=== PATIENT | female | born 1945 | race Caucasian/White ===

== ENCOUNTER → 2016-04-21 | Outpatient (CLI) | payer BC, MEDICARE ==
--- NOTE | 2016-04-21 15:07 | KCIC ---
CT of the right knee Conformis protocol HISTORY Preop total knee arthroplasty. Technique: The standard images are obtained in accordance with Conformis protocol. Primary osteoarthritis is identified at the knee. There is severe narrowing at the medial joint compartment with vacuum. Mild subchondral eburnation and small subchondral cysts. Milder degenerative changes at the lateral compartment. Patellofemoral joint demonstrates joint space narrowing and marginal osteophytes. Degenerative changes at the fabella femoral joint. No evidence of aggressive bone destruction or acute fracture. No acute soft tissue abnormality is identified. Limited images are obtained in the axial plane through the right hip and through the right ankle, without obvious acute abnormality. Impression: Right knee primary osteoarthritis. Electronically signed by: Gabe Britt MD (Apr 21, 2016 15:06:03)
== END | disposition home or self-care (01) ==
LOC: KCIC CT 12:21
PROVIDERS: ATTEND Orthopaedic Surgery
DX: Z96.651 Presence of right artificial knee joint (principal)
CPT/HCPCS: 73700

== ENCOUNTER → 2016-07-14 | Outpatient (CLI) | payer MEDICARE ==
[~2016-07-14] MED LIST: AMIT25TA PO; BIOT1CAP3 PO; CLON0.5T3 PO; FLUT1DIS3 IH; GLUC500T7 PO; HYDR12.58 PO; LACT1CAP6 PO; LEVO88TA2 PO; LOSA100T6 PO; METO25TA9 PO; MULT-650 PO; NAPR500T PO; OMEP20CA9 PO; PROAIR HFA8.5 GM INH
[2016-07-14 08:47] LABS: BASO # 0.1 x10^3/uL (0.0-0.2); BASO % 1 % (0-3); EOS % 4 % (0-3); HEMATOCRIT 43.2 % (36.0-47.0); HEMOGLOBIN 14.4 g/dL (12.0-15.5); LYMPH # 1.8 x10^3/uL (1.0-4.8); LYMPH % 29 % (24-48); MEAN CORPUSCULAR HEMOGLOBIN 33 pg (25-35); MEAN CORPUSCULAR HGB CONC 33 g/dL (31-37); MEAN CORPUSCULAR VOLUME 99 fL (79-100); MONO % 9 % (0-9); NEUT % 58 % (31-73); PLATELET COUNT 205 x10^3/uL (140-400); RED BLOOD COUNT 4.37 x10^6/uL (3.50-5.40); RED CELL DISTRIBUTION WIDTH 13.5 % (11.5-14.5); WHITE BLOOD COUNT 6.2 x10^3/uL (4.0-11.0)
[2016-07-14 08:54] LABS: ALBUMIN 3.7 g/dL (3.4-5.0); CALCIUM 9.4 mg/dL (8.5-10.1); CREATININE 0.9 mg/dL (0.6-1.0); GFR 61.5
[2016-07-14 08:59] LABS: PROTHROMBIN TIME PATIENT 12.6 SEC (11.7-14.0)
[2016-07-14 10:55] LABS: BILIRUBIN,URINE NEGATIVE (NEG); GLUCOSE,URINE NEGATIVE (NEG); NITRITE,URINE NEGATIVE (NEG); PROTEIN,URINE NEGATIVE (NEG-TRACE); UROBILINOGEN,URINE 0.2 mg/dL (0.2 mg/dL)
[2016-07-14 11:40] LABS: BACTERIA,URINE 0 /HPF (0-FEW); RBC,URINE 0 /HPF (0-2); SQUAMOUS EPITHELIAL CELL,UR OCC /LPF; WBC,URINE OCC /HPF (0-4)
--- NOTE | 2016-07-14 12:37 | RAD ---
Exam: PA and lateral chest radiograph History: Hypertension, preoperative for knee replacement. Comparison: 05/21/2010. Findings: Cardiomediastinal silhouette is within normal limits for size. Aortic atherosclerosis is seen. Bilateral lung siu are free of focal infiltrate. No pleural effusion is seen. Cervicothoracic junction demonstrates spinal fusion hardware. Impression: No acute cardiopulmonary process.
== END | disposition home or self-care (01) ==
LOC: SURGPAT 16:28
PROVIDERS: ATTEND Orthopaedic Surgery
DX: Z01.818 Encounter for other preprocedural examination (principal); I10 Essential (primary) hypertension
CPT/HCPCS: 36415; 71020; 80048; 81001; 82040; 85027; 85610; 85651; 85730; 87641

== ENCOUNTER 2016-08-05 05:43 | Inpatient (IN) | payer BC ==
--- NOTE | 2016-08-04 13:17 | PDOC1 ---
History and Physical Date of Admission Date of Admission DATE: 08/05/16 Identification/Chief Complaint Chief Complaint right knee osteoarthritis pain Problems: Source Source: Chart review History of Present Illness History of Present Illness Halle is a 70 year old female who has bilateral knee osteoarthritis. The right knee is more painful than the left. She has tried both corticosteroid injections and viscosupplementation, without much relief. She is ready for total knee replacement. She is afraid if she waits too long she will not be able to get both of them done, which she would like to do. Past Medical History Pulmonary: COPD GI: GERD Musculoskeletal: Osteoarthritis Past Surgical History Past Surgical History: Appendectomy Family History Family History: Cancer, Heart Disease, Osteo Arthiritis Social History Smoke: Quit (03/13/76) ALCOHOL: none Drugs: None Current Medications Current Medications Current Medications Ketorolac Tromethamine/ Ropivacaine/ Epinephrine HCl/ Sodium Chloride (Toradol/ Naropin 0.5%/Adrenalin/Iv Sodium Chloride 0.9% 100ml) 99.5 ml @ 99.5 mls/hr 1X PERIOP PRN IV PAIN; Start 08/04/16 at 10:45; Stop 08/09/16 at 10:44 Active Scripts Active Reported Naprosyn (Naproxen) 500 Mg Tablet 375 Mg PO BID Advair 250-50 Diskus (Fluticasone/Salmeterol) 1 Each Disk.w.dev 1 Inh IH BID Biotin 1 Mg Capsule 1 Mg PO DAILY Glucosamine Hcl 500 Mg Tablet 500 Mg PO DAILY Probiotic (Lactobacillus Acidophilus) 1 Each Capsule 1 Each PO DAILY Centrum Silver Women Tablet (Multivits-Min/Iron/FA/Lutein) 1 Each Tablet 1 Each PO DAILY Synthroid (Levothyroxine Sodium) 88 Mcg Tablet 88 Mcg PO DAILYAC Proair Hfa Inhaler (Albuterol Sulfate) 8.5 Gm Hfa.aer.ad 22 Puff INH PRN Q6HRS PRN Hydrochlorothiazide Tablet (Hydrochlorothiazide) 12.5 Mg Tablet 6.25 Mg PO DAILY Losartan Potassium 100 Mg Tablet 100 Mg PO DAILY Omeprazole 20 Mg Capsule.dr 20 Mg PO DAILY Metoprolol Succinate ( Xl ) (Metoprolol Succinate) 25 Mg Tab.er.24h 25 Mg PO DAILY Amitriptyline Hcl 25 Mg Tablet 1 Tab PO QHS Clonazepam 0.5 Mg Tablet 0.5 Mg PO BID Allergies Allergies: Coded Allergies: codeine (Verified Allergy, Intermediate, Nausea and Vomiting, 07/08/16) morphine (Verified Allergy, Intermediate, Nausea and Vomiting, 07/08/16) I S O L A T I O N *CONTACT* (Verified Allergy, Unknown, 07/15/16) mrsa + Physical Exam General: Alert, Oriented X3, Cooperative, No acute distress HEENT: Atraumatic, EOMI Lungs: Normal air movement Heart: RRR Abdomen: Soft Extremities: No clubbing, No cyanosis, No edema, Normal pulses, Other (The right knee shows her mildly antalgic gait. There is varus alignment. No masses. No detectable effusion. Tenderness on the joint lines. Range of motion is 10- 110 degrees. There is crepitus with range of motion, and pain at the extremes of motion. The knee is stable to varus and valgus stress without subluxation or laxity. Muscle strength is normal (5/5) for quadriceps and hamstrings, and muscle tone is normal. The skin is normal with no scars, rashes, lesions or ulcers. Light touch sensation is intact. No edema and no varicosities. Dorsalis pedis pulse is intact and capillary refill is normal. The left knee shows normal to trace varus alignment. No masses. No detectable effusion. Tenderness on the joint lines. Range of motion is 5-115 degrees. There is crepitus with range of motion, and pain at the extremes of motion. The knee is stable to varus and valgus stress without subluxation or laxity. Muscle strength is normal (5/5) for quadriceps and hamstrings, and muscle tone is normal. The skin is normal with no scars, rashes, lesions or ulcers. Light touch sensation is intact. No edema and no varicosities. Dorsalis pedis pulse is intact and capillary refill is normal.) Skin: No rashes, No breakdown, No significant lesion Neuro: Normal speech, Sensation intact Psych/Mental Status: Mental status NL, Mood NL VTE Prophylaxis Ordered VTE Prophylaxis Devices: Yes VTE Pharmacological Prophylaxi: Yes Assessment/Plan Assessment/Plan Bilateral knee osteoarthritis, right knee more severe than the left. Dr. An and the patient had long discussion bout the risks benefits and alternatives of total knee arthroplasty. She has tried viscosupplementation, corticosteroid injections, and taking oral naproxen. Despite that she still has daily symptoms. Other things offered she could try nonoperatively include formal therapy or bracing but at age 70, she is concerned that she will get too old and I agree. She is relatively healthy and functional and would benefit from total knee arthroplasty. She has a friend who had a periprosthetic fracture and we talked about her risks of that such as using omeprazole for many years, and that she has been using calcium carbonate. I recommended she start taking calcium citrate instead. We discussed the benefits of patient matched custom implant such as Conformis. We discussed the option of an off-the- shelf implants, with stems if needed for osteoporosis. She has only very mild osteoporosis by DEXA scan, so I believe the custom implants will be fine for her. These do seem to do well in recovery and patient satisfaction in early studies. The Conformis implant recently was released in posterior stabilized design which I prefer. We discussed the potential risks of infection, neurovascular injury, bleeding, blood clots, need for revision surgery, or other potential surgical or anesthetic complications. We discussed the expected hospitalization. Her can help her home and she desires to go home immediately after three day hospitalization. All of her questions about surgery were answered. We will get the CT scan scheduled for her 3-D printed custom implant, and need to get long leg x-rays as well. The right knee is the one that is the most symptomatic and that is the one we will do in august after . She would like cortisone injections in both knees today. We discussed the risks of infection with cortisone injections too close to the time of surgery, but this far out should be fine. We could see her back in three months to inject the left knee only. JOSUE DE LA PAZ Aug 04, 2016 13:17
[2016-08-05] VITALS (8 sets, daily range): BP systolic 110–141; BP diastolic 62–73
[~2016-08-05] VITALS: Ht 167.6 cm; Wt 81.6 kg
[~2016-08-05 05:43] MED LIST changes: +EPINEPHRINE IV PRN; +KETOROLAC TROMETHAMINE IV PRN; +ROPIVACAINE 0.5% IV PRN; +[UNRECOGNIZED DRUG - OTHER] IV PRN
[2016-08-05] MEDS ORDERED: CELECOXIB 200 MG CAPSULE. PO PRN (06:00)
[2016-08-05] MEDS ORDERED: TRANEXAMIC ACID 1,000 MG in IV NS 50ML -- 1ST BAG INJ ONE (06:00)
[2016-08-05] MEDS ORDERED: VANCOMYCIN 1GM IVPB FOR OMNI 250 ML IV PRN (06:30)
[2016-08-05] MEDS ORDERED: VANCOMYCIN 1 GM VIAL. ONE ×2 (06:34→09:51)
[2016-08-05] MEDS ORDERED: TOBRAMYCIN POWDER 1.2 GM VIAL. ONE ×2 (06:35→09:51)
[2016-08-05] MEDS ORDERED: DESFLURANE > 120 MINUTES IH ONE (06:52)
[2016-08-05] MEDS ORDERED: ONDANSETRON PF 4 MG/2 ML VIAL. ONE (06:52)
[2016-08-05] MEDS ORDERED: LIDOCAINE 2% 100 MG/5 ML SYRINGE. ONE (06:52)
[2016-08-05] MEDS ORDERED: DEXAMETHASONE SOD PHOS 20 MG/5 ML VIAL. ONE (06:52)
[2016-08-05] MEDS ORDERED: PROPOFOL 20 ML IV ONE (06:52)
[2016-08-05] MEDS ORDERED: FENTANYL PF 100 MCG/2 ML VIAL. ONE (06:52)
[2016-08-05] MEDS ORDERED: ONDANSETRON PF 4 MG/2 ML VIAL. IV PRN (07:00)
[2016-08-05] MEDS ORDERED: LIDOCAINE 1% 1 ML SYRINGE. ID PRN (07:00)
[2016-08-05] MEDS ORDERED: FENTANYL PF 100 MCG/2 ML VIAL. IV PRN ×3 (07:00→10:00)
[2016-08-05] MEDS ORDERED: PROCHLORPERAZINE 10 MG/2 ML VIAL. IV PRN ×2 (07:00→10:00)
[2016-08-05] MEDS: IV RINGERS,LACTATED 1000ML 1,000 ML IV SCH ×2 (07:03→10:23)
[2016-08-05] MEDS: HYDROCODONE/APAP 7.5/325MG TABLET. PO PRN ×2 (07:04→13:34)
[2016-08-05] MEDS ORDERED: MIDAZOLAM HCL/PF 5 MG/5 ML VIAL. ONE (07:05)
[2016-08-05] MEDS ORDERED: SCOPOLAMINE 1.5MG PATCH. TD ONE ×2 (07:10→07:15)
[2016-08-05] MEDS ORDERED: SUCCINYLCHOLINE 200 MG/10 ML VIAL. ONE (07:17)
[2016-08-05] MEDS ORDERED: GLYCOPYRROLATE 1 MG/5 ML VIAL. ONE (07:43)
[2016-08-05] MEDS ORDERED: TRANEXAMIC ACID 1,000 MG in IV NS 50ML -- 2ND BAG INJ ONE (08:00)
[2016-08-05] MEDS ORDERED: METOCLOPRAMIDE HCL 10 MG/2 ML VIAL. IV PRN (10:00)
[2016-08-05] MEDS ORDERED: 0.9 % SODIUM CHLORIDE 10 ML DISP.SYRIN. IV PRN (10:00)
[2016-08-05] MEDS ORDERED: TRAMADOL 50 MG TABLET. PO PRN ×2 (10:00)
[2016-08-05] MEDS ORDERED: OXYCODONE/APAP 7.5/325 TABLET. PO PRN (10:00)
[2016-08-05] MEDS ORDERED: PROCHLORPERAZINE 5 MG TABLET. PO PRN (10:00)
[2016-08-05] MEDS ORDERED: ACETAMINOPHEN 325 MG TABLET. PO PRN (10:00)
[2016-08-05] MEDS ORDERED: diphenhydrAMINE 50 MG/ML VIAL IV PRN (10:00)
[2016-08-05] MEDS ORDERED: DEXTROSE 50% 25 GM / 50ML DISP.SYRIN. IV PRN (10:00)
[2016-08-05] MEDS ORDERED: HYDROCODONE/APAP 7.5/325MG TABLET. PO PRN (10:00)
[2016-08-05] MEDS ORDERED: ZOLPIDEM 5 MG TABLET. PO PRN (10:00)
[2016-08-05] MEDS ORDERED: HYDROCODONE/APAP 10/325 TABLET. PO PRN (10:00)
[2016-08-05] MEDS ORDERED: ALBUTEROL SULFATE INH PRN (10:15)
--- NOTE | 2016-08-05 10:23 | PDOC4 ---
Operative Note Operative Note Date of Procedure: August 05, 2016 Pre-Op Diagnosis: Osteoarthritis right knee Post-Op Diagnosis: Osteoarthritis right knee Procedure: right total knee arthroplasty Surgeon: Jeanine An MD Manager Inventory Control: Pati Fall PA-C Anesthesia: General EBL: 100 mL Specimens Obtained: right knee bone and soft tissue Complications: none Implant Company: [employer] Patient Matched Implants and Patient Matched Jigs Drains: Hemovac plus pain catheter Tourniquet time: 71 minutes Indications for Procedure: Arthritis pain unrelieved by nonoperative management. Findings: Severe osteoarthritis with bone on bone contact medially Implants used: Custom posterior stabilized implants, with patella resurfacing 38 mm Procedure in Detail: The patient was identified in the preoperative holding area, and the correct right extremity was marked by me. The patient was taken to the operating room where the patient was anesthetized by the Department of Anesthesia. Preoperative antibiotics were given intravenously. Tranexamic acid 1 g was given intravenously for intraoperative hemostasis. A "time-out" procedure was performed. The patient was positioned supine on the operative table with a tourniquet on the upper thigh. The limb was thoroughly prepped and draped in sterile fashion. An impervious stockinet and adhesive drape were used such that the skin was entirely covered. An Hupu leg welch was used. The operating team wore personal exhaust-ventilated hoods. The tourniquet was inflated to 350 mm Hg. A midline skin incision was made with a scalpel using the patella and tibial tubercle as landmarks. Electrocautery was used for hemostasis. My optical assistant used rake retractors. A medial parapatellar arthrotomy incision was used with extension into the distal quadriceps tendon. The patella was retracted laterally and Hohmann retractors were now used by my optical assistant. Excess synovium, the menisci, and the cruciate ligaments were resected sharply. The patella was assessed and excess synovium and osteophytes around the patellar articulation were removed. The patella was measured with a caliper, cut freehand with a saw using caliper measurements, sized, and then drilled for an oval three-pegged patella component. Periarticular injection was used in the suprapatellar pouch and distal quadriceps muscle. The patient-matched Positioning Jig was applied, and the coring reamer was used to expose the subchondral bone. The Alignment Jig and Distal Resection Jig were applied to the femur. The rotational pin holes were drilled on the distal femur. The distal resection was made using the Jig. An additional 2 mm resection was used due to the deep femoral sulcus, and deficient condyle. My optical assistant held Hohmann retractors and an [facility] retractor to protect the medial and lateral collateral ligaments, the patellar tendon, the skin and the other soft tissues. The Extension Spacer Jig was used to check that the cuts were planar. The patient-matched Tibial Jig was first aligned to the tibia, and cartilage was removed with a curette for application of the Jig to the subchondral bone. The Tibial Jig was pinned to the tibia and rotational alignment and the planned resection thickness assessed. An external alignment tamika was used to verify the planned cut in the varus-valgus plane and regarding posterior slope referencing the tibial tubercle, the tibial shaft, the ankle joint, and the second metatarsal. The upper tibia was cut made with an oscillating saw. My optical assistant held Hohmann retractors and a posterior cruciate ligament retractor to protect the medial and lateral collateral ligaments, the patellar tendon, the skin, the peroneal nerve and the other soft tissues. Gap balancing was now performed, using the Extension Spacer Jig in extension, and then a thinner but similar Flexion Spacer Jig, and gap balance assessed. An additional 2 mm resection was performed on the tibia. The F4 femoral cutting Jig was now applied using the previous rotational pin holes and using the Flexion Spacer Jig . Additional pins were used on the F4 Jig. The anterior, posterior, and anterior chamfer cuts were made without difficulty, with appropriate bone resection. The lug holes were drilled. The Resection Flexion Spacer Jig confirmed the cuts and balance in flexion, and no additional resection was needed. The F5 Chamfer Jig was applied and the two posterior chamfer cuts were made. Finally the Box Cutting Jig was used, pinned into place, and the box resected with a reciprocating saw. The Box Gauge Jig was used to verify the resection, and additional box resection and soft tissue resection of the PCL was used so that the Box Gauge Jig fit flush. The posterior compartment was cleared of osteophytes and loose bodies, and posterior capsule released. Brittany-articular injection was used in the posterior compartment. A preliminary reduction was performed with the patient matched trial femur, patient-matched tibia alignment guide and patella. Soft-tissue balancing was now performed, and extension and rotation of the alignments was checked using a guide tamika in the tibial trial and a guide pin in the femur. A medial release was required, using a 10 blade scalpel, and a Wu elevator to elevate the medial structures from the upper medial tibia. The stability was assessed using different thicknesses of tibial articular surface to find satisfactory stability and good range of motion. The rotation of the tibial component was marked on the upper tibia. Final trial reduction was now performed verifying patella tracking and tibiofemoral stability and alignment. The tibia preparation was completed with a drill, and fin punch at the previously noted rotation. The final patient-matched implants were verified and opened. Outer gloves were changed by the operating team. The bone cuts were washed thoroughly with the Tu Closet Mi Closet InterPulse device and dried. Two packages of Palacos bone cement were mixed in powdered form with 1 gm of Vancomycin and 1.2 g tobramycin, then vacuum-mixed with the monomer, and placed into a cement gun. The cut surfaces of the bone were thoroughly dried with Rodriguez-tip suction and with laparotomy sponges for cement interdigitation. The final components were cemented into place. The knee was kept at full extension while the cement hardened, and excess cement was removed. Tranexamic acid 1 g was redosed intravenously for additional intraoperative hemostasis. A final periarticular injection was used for pain relief. The tourniquet was released, and electrocautery was used for hemostasis. A final check of [id number] and stability was made, and the polyethylene implant final size was chosen. The polyethylene implant was secured to the tibial baseplate, and the knee was reduced a final time. Thorough irrigation was used. Hemovac and pain catheter were used.The arthrotomy was closed with interrupted [id number] #1 PDS suture. The capsulotomy was then run with #1 PDS. The subcutaneous tissues were closed with #2-0 Vicryl by my optical assistant. The skin was reapproximated with 3 -0 Monocryl by my optical assistant. Dermabond Prineo mesh and dressing were used. A bulky sterile dressing was applied. Needle and sponge counts were correct. JEANINE AN MD Aug 05, 2016 10:23
[2016-08-05] MEDS: FENTANYL PF 100 MCG/2 ML VIAL. IV PRN ×2 (10:24→10:51)
--- NOTE | 2016-08-05 10:40 | RAD ---
Portable right knee, 2 views, 08/05/2016: History: Postop evaluation A total knee prosthesis is in place in satisfactory position. A surgical drain overlie the operative site anteriorly. There is no evidence of a retained surgical instrument, needle or radiopaque sponge on these 2 views. IMPRESSION: No significant postoperative abnormality is detected.
[2016-08-05] MEDS ORDERED: ALBUTEROL SULFATE 2.5 MG/3 ML NEBU. NEB PRN (11:30)
[2016-08-05] MEDS: CALCIUM CARBONATE 500 MG TAB.CHEW PO PRN ×2 (14:51→16:34)
[2016-08-05] MEDS: ALBUTEROL SULFATE 2.5 MG/3 ML NEBU. NEB SCH ×2 (15:23→18:07)
[2016-08-05] MEDS: FERROUS SULFATE 325 MG TABLET. PO SCH (16:35)
[2016-08-05] MEDS: [UNRECOGNIZED DRUG - OTHER] INT ART SCH (17:32)
[2016-08-05] MEDS: EPINEPHRINE INT ART SCH (17:32)
[2016-08-05] MEDS: KETOROLAC TROMETHAMINE INT ART SCH (17:32)
[2016-08-05] MEDS: BUPIVACAINE MPF 0.25% INT ART SCH (17:32)
[2016-08-05] MEDS: BUDESONIDE 0.5 MG/2 ML NEBU. NEB SCH (18:07)
[2016-08-05] MEDS ORDERED: VANCOMYCIN 1 GM in IV NORMAL SALINE 250ML 250 ML IV ONE (19:00)
[2016-08-05] MEDS: ASPIRIN ENTERIC COATED 325 MG TABLET.DR. PO SCH (20:26)
[2016-08-05] MEDS: AMITRIPTYLINE HCL 25 MG TABLET. PO SCH (20:26)
[2016-08-05] MEDS: CLONAZEPAM 0.5 MG TABLET PO SCH (20:26)
[2016-08-05] MEDS: CELECOXIB 200 MG CAPSULE. PO SCH (20:27)
[2016-08-05] MEDS: IV DEXTROSE 5 %-0.45 % NACL 1,000 ML IV SCH ×2 (20:28→22:00)
[2016-08-05] MEDS ORDERED: NON FORMULARY ITEM (Fluticasone/Salmeterol (Advair 250-50 Diskus) 1 INH) IH SCH (21:00)
[2016-08-06 03:24] VITALS: BP 134/60
[2016-08-06] MEDS: EPINEPHRINE INT ART SCH (05:38)
[2016-08-06] MEDS: [UNRECOGNIZED DRUG - OTHER] INT ART SCH (05:38)
[2016-08-06] MEDS: BUPIVACAINE MPF 0.25% INT ART SCH (05:38)
[2016-08-06] MEDS: KETOROLAC TROMETHAMINE INT ART SCH (05:38)
[2016-08-06] MEDS ORDERED: MAGNESIUM HYDROXIDE 2,400 MG/30 ML ORAL.SUSP. PO PRN (06:00)
[2016-08-06 06:18] VITALS: BP 143/70
[2016-08-06] MEDS: ALBUTEROL SULFATE 2.5 MG/3 ML NEBU. NEB SCH ×4 (07:02→20:03)
[2016-08-06] MEDS: BUDESONIDE 0.5 MG/2 ML NEBU. NEB SCH ×2 (07:02→20:03)
[2016-08-06 07:08] LABS: HEMATOCRIT 39.3 % (36.0-47.0); HEMOGLOBIN 13.1 g/dL (12.0-15.5)
[2016-08-06] MEDS: LEVOTHYROXINE 88 MCG TABLET PO SCH (07:12)
[2016-08-06] MEDS: PANTOPRAZOLE 40 MG TABLET.DR. PO SCH (07:12)
[2016-08-06 07:50] LABS: INR 1.1 (0.8-1.1); PROTHROMBIN TIME PATIENT 13.1 SEC (11.7-14.0)
[2016-08-06] MEDS: OXYCODONE/APAP 5/325 TABLET. PO PRN ×3 (07:55→17:13)
[2016-08-06] MEDS: IV DEXTROSE 5 %-0.45 % NACL 1,000 ML IV SCH ×2 (08:00→18:00)
[2016-08-06] MEDS: CELECOXIB 200 MG CAPSULE. PO SCH ×2 (08:35→20:49)
[2016-08-06] MEDS: MULTIVITAMIN with MINERAL TABLET. PO SCH (08:35)
[2016-08-06] MEDS: SENNOSIDES/DOCUSATE 8.6/50MG TABLET. PO SCH (08:35)
[2016-08-06] MEDS: ASPIRIN ENTERIC COATED 325 MG TABLET.DR. PO SCH ×2 (08:35→20:49)
[2016-08-06] MEDS: FERROUS SULFATE 325 MG TABLET. PO SCH ×2 (08:36→17:12)
[2016-08-06] MEDS: LACTOBACILLUS ACIDOPH & BULGAR 1 TABLET. PO SCH (08:36)
[2016-08-06] MEDS: CLONAZEPAM 0.5 MG TABLET PO SCH ×2 (08:37→22:11)
[2016-08-06 08:41] VITALS: BP 104/43
[2016-08-06] MEDS: LOSARTAN POTASSIUM 50 MG TABLET. PO SCH (09:00)
[2016-08-06] MEDS: HYDROCHLOROTHIAZIDE 25 MG TABLET PO SCH (09:00)
--- NOTE | 2016-08-06 10:17 | PDOC ---
PROGRESS NOTES Subjective Subjective Doing well. No complaints. Objective Vital Signs Vital Signs Date Time Temp Pulse Resp B/P Pulse Ox O2 Delivery O2 Flow Rate FiO2 08/06/16 08:42 20 98 Room Air 08/06/16 08:41 77 104/43 08/06/16 06:18 98.6 98.6 08/05/16 15:37 2.0 Physical Exam Dressing dry and intact. Pain catheter and Hemovac in place. Good dorsiflexion and plantarflexion of the foot with no evidence of neurovascular injury or DVT. Calves are soft and non-tender. Negative Homans. Peripheral pulses and light touch sensation intact. Labs Laboratory Tests Test 08/06/16 06:30 Hemoglobin 13.1g/dL (12.0-15.5) Hematocrit 39.3% (36.0-47.0) Mean Corpuscular Hemoglobin Concent 33g/dL (31-37) Prothrombin Time 13.1SEC (11.7-14.0) Prothromb Time International Ratio 1.1 (0.8-1.1) Laboratory Tests Test 08/06/16 06:30 Hemoglobin 13.1g/dL (12.0-15.5) Hematocrit 39.3% (36.0-47.0) Mean Corpuscular Hemoglobin Concent 33g/dL (31-37) Prothrombin Time 13.1SEC (11.7-14.0) Prothromb Time International Ratio 1.1 (0.8-1.1) Imaging Postoperative x-rays reviewed by me, showing satisfactory total knee replacement , with no apparent complications. Assessment Assessment POD #1 TKA Problems: Plan Plan of Care Continue POC including DVT prophylaxis and physical therapy. JOSUE DE LA PAZ Aug 06, 2016 10:17
[2016-08-06 12:03] VITALS: BP 133/51
[2016-08-06 15:00] VITALS: BP 134/72
[2016-08-06] MEDS ORDERED: BISACODYL 10 MG SUPP.RECT. PR PRN (16:00)
[2016-08-06] MEDS: METOPROLOL SUCC 24HR ER 25 MG TAB.ER.24H. PO SCH (17:12)
[2016-08-06 18:03] VITALS: BP 126/53
[2016-08-06] MEDS: AMITRIPTYLINE HCL 25 MG TABLET. PO SCH (20:49)
[2016-08-07 05:23] LABS: INR 1.1 (0.8-1.1); PROTHROMBIN TIME PATIENT 13.9 SEC (11.7-14.0)
[2016-08-07 05:56] VITALS: BP 133/62
[2016-08-07] MEDS: PANTOPRAZOLE 40 MG TABLET.DR. PO SCH (06:02)
[2016-08-07] MEDS: LEVOTHYROXINE 88 MCG TABLET PO SCH (06:02)
[2016-08-07] MEDS: OXYCODONE/APAP 5/325 TABLET. PO PRN ×2 (07:17→12:50)
[2016-08-07] MEDS: CELECOXIB 200 MG CAPSULE. PO SCH ×2 (07:18→21:21)
[2016-08-07] MEDS: ALBUTEROL SULFATE 2.5 MG/3 ML NEBU. NEB SCH (07:20)
[2016-08-07] MEDS: BUDESONIDE 0.5 MG/2 ML NEBU. NEB SCH ×2 (07:20→21:21)
[2016-08-07] MEDS: MULTIVITAMIN with MINERAL TABLET. PO SCH (08:30)
[2016-08-07] MEDS: FERROUS SULFATE 325 MG TABLET. PO SCH ×2 (08:30→17:00)
[2016-08-07] MEDS: HYDROCHLOROTHIAZIDE 25 MG TABLET PO SCH (08:31)
[2016-08-07] MEDS: SENNOSIDES/DOCUSATE 8.6/50MG TABLET. PO SCH (08:31)
[2016-08-07] MEDS: LACTOBACILLUS ACIDOPH & BULGAR 1 TABLET. PO SCH (08:31)
[2016-08-07] MEDS: ASPIRIN ENTERIC COATED 325 MG TABLET.DR. PO SCH ×2 (08:31→21:21)
[2016-08-07] MEDS: LOSARTAN POTASSIUM 50 MG TABLET. PO SCH (08:32)
[2016-08-07] MEDS: CLONAZEPAM 0.5 MG TABLET PO SCH ×2 (09:00→21:21)
[2016-08-07 10:42] LABS: HEMATOCRIT 35.7 % (36.0-47.0); HEMOGLOBIN 11.9 g/dL (12.0-15.5)
[2016-08-07 11:48] VITALS: BP 123/55
--- NOTE | 2016-08-07 12:38 | PDOC ---
PROGRESS NOTES Subjective Subjective Doing well. Only reports mild pain increase from yesterday. Objective Vital Signs Vital Signs Date Time Temp Pulse Resp B/P Pulse Ox O2 Delivery O2 Flow Rate FiO2 08/07/16 11:48 99.0 69 20 123/55 98 Room Air 99.0 08/06/16 17:13 2.0 Physical Exam Expected swelling. Pain catheter and drain have been removed. Dressing with spotty drainage only. Calf soft and nontender. Negative homans sign. Good AROM ankle. Peripheral pulses and light touch sensation intact. Labs Laboratory Tests Test 08/06/16 06:30 08/07/16 04:25 Hemoglobin 13.1g/dL (12.0-15.5) 11.9g/dL (12.0-15.5) Hematocrit 39.3% (36.0-47.0) 35.7% (36.0-47.0) Mean Corpuscular Hemoglobin Concent 33g/dL (31-37) 34g/dL (31-37) Prothrombin Time 13.1SEC (11.7-14.0) 13.9SEC (11.7-14.0) Prothromb Time International Ratio 1.1 (0.8-1.1) 1.1 (0.8-1.1) Laboratory Tests Test 08/07/16 04:25 Hemoglobin 11.9g/dL (12.0-15.5) Hematocrit 35.7% (36.0-47.0) Mean Corpuscular Hemoglobin Concent 34g/dL (31-37) Prothrombin Time 13.9SEC (11.7-14.0) Prothromb Time International Ratio 1.1 (0.8-1.1) Imaging X-rays independently reviewed by me and show satisfactory TKA alignment and no apparent complications. Assessment Assessment POD 2 TKA Problems: Plan Plan of Care Continue DVT prophylaxis and physical therapy. Planned discharge tomorrow. Office F/U in 10-14 days. JEANINE SHARMA MD Aug 07, 2016 12:38
[2016-08-07] MEDS: METOPROLOL SUCC 24HR ER 25 MG TAB.ER.24H. PO SCH (12:50)
--- NOTE | 2016-08-07 13:48 | PATHOLOGY ---
PATHOLOGY REPORT * * * * * * * * FINAL DIAGNOSIS: Bone, "right knee tissue," removal: - Degenerative osteoarthritis. (SKM:; d/t: 08/07/16) REPORT ELECTRONICALLY SIGNED BY: Flavio Odell M.D. DATE/TIME: 08/07/2016 13:48 * * * * * * * * GROSS PATHOLOGY: Received in formalin labeled "Durga Navarrete, right knee tissue," are multiple segments of bone, including tibial plateau, measuring 8.9 x 8.5 x 2.4 cm in aggregate dimensions admixed with soft tissue; meniscus is present. The specimen shows focal eburnation of the articular surfaces. Button Tufting Machine Operator sections of bone and soft tissue are submitted in cassette A1, following decalcification. (CAA; 08/06/2016) INITIAL CPT CODE(S): A; 52018, 84433 Professional services performed by [facility] at [address], [place] [address] Technical services performed by [facility] at [address] [place] [address], [place] [address]. SPECIMEN(S) RECEIVED: A.Right knee tissue CLINICAL HISTORY: Right knee OA PATIENT: DURGA NAVARRETE /AGE: 8 1945 (Age: 70) PATIENT #: [id number] ALT CASE #: SPECIMEN COLLECTION DATE: 08/05/2016 SPECIMEN RECEIVED DATE: 08/05/2016 [facility] - [address] [place] [address] - PHONE: [phone] * * * END OF REPORT * * *
[2016-08-07 15:24] VITALS: BP 138/58
[2016-08-07] MEDS ORDERED: BISACODYL 10 MG SUPP.RECT. PR PRN (16:45)
[2016-08-07 17:39] VITALS: BP 138/65
[2016-08-07] MEDS: AMITRIPTYLINE HCL 25 MG TABLET. PO SCH (21:21)
[2016-08-08 06:04] VITALS: BP 148/71
[2016-08-08] MEDS: LEVOTHYROXINE 88 MCG TABLET PO SCH (06:26)
[2016-08-08] MEDS: PANTOPRAZOLE 40 MG TABLET.DR. PO SCH (06:26)
[2016-08-08] MEDS: BUDESONIDE 0.5 MG/2 ML NEBU. NEB SCH (07:12)
[2016-08-08] MEDS: OXYCODONE/APAP 5/325 TABLET. PO PRN ×3 (09:22→15:32)
[2016-08-08] MEDS: SENNOSIDES/DOCUSATE 8.6/50MG TABLET. PO SCH (09:22)
[2016-08-08] MEDS: FERROUS SULFATE 325 MG TABLET. PO SCH (09:22)
[2016-08-08] MEDS: MULTIVITAMIN with MINERAL TABLET. PO SCH (09:22)
[2016-08-08] MEDS: HYDROCHLOROTHIAZIDE 25 MG TABLET PO SCH (09:22)
[2016-08-08] MEDS: ASPIRIN ENTERIC COATED 325 MG TABLET.DR. PO SCH (09:23)
[2016-08-08] MEDS: LOSARTAN POTASSIUM 50 MG TABLET. PO SCH (09:23)
[2016-08-08] MEDS: CELECOXIB 200 MG CAPSULE. PO SCH (09:23)
[2016-08-08] MEDS: LACTOBACILLUS ACIDOPH & BULGAR 1 TABLET. PO SCH (09:23)
[2016-08-08] MEDS: METOPROLOL SUCC 24HR ER 25 MG TAB.ER.24H. PO SCH (09:23)
--- NOTE | 2016-08-08 09:50 | PDOC ---
PROGRESS NOTES Subjective Subjective Doing well. Planning for discharge later today after PT. Objective Vital Signs Vital Signs Date Time Temp Pulse Resp B/P Pulse Ox O2 Delivery O2 Flow Rate FiO2 08/08/16 09:23 86 148/71 08/08/16 09:22 20 08/08/16 07:15 95 Room Air 08/08/16 06:04 98.6 98.6 08/07/16 08:15 2.0 Physical Exam Expected swelling. Prineo dry and intact. Calf soft and nontender. Negative Homans. Good AROM ankle. Peripheral pulses and light touch sensation intact. Labs Laboratory Tests Test 08/07/16 04:25 Hemoglobin 11.9g/dL (12.0-15.5) Hematocrit 35.7% (36.0-47.0) Mean Corpuscular Hemoglobin Concent 34g/dL (31-37) Prothrombin Time 13.9SEC (11.7-14.0) Prothromb Time International Ratio 1.1 (0.8-1.1) Assessment Assessment POD 3 TKA Problems: Plan Plan of Care Discharge later today, to home. Continue DVT prophylaxis and physical therapy. F/U 10-14 days. JOSUE DE LA PAZ Aug 08, 2016 09:50
[2016-08-08] MEDS ORDERED: ASPI325T11 PO (10:45)
[2016-08-08] MEDS ORDERED: FERR-26 PO (10:46)
[2016-08-08] MEDS ORDERED: OXYC-323 PO (10:46)
[2016-08-08 10:50] LABS: HEMATOCRIT 38.5 % (36.0-47.0); HEMOGLOBIN 13.4 g/dL (12.0-15.5)
--- NOTE | 2016-08-08 11:09 | PDOC3 ---
Discharge Summary Visit Information Date of Admission: Aug 05, 2016 Date of Discharge: Aug 08, 2016 Admitting Diagnosis: right knee osteoarthritis pain Final Diagnosis Problems Medical Problems: (1) Primary osteoarthritis of right knee Status: Acute Brief Hospital Course Allergies Allergies Coded Allergies Type Severity Reaction Last Updated Verified codeine Allergy Intermediate Nausea and Vomiting 08/05/16 Yes morphine Allergy Intermediate Nausea and Vomiting 08/05/16 Yes I S O L A T I O N *CONTACT* Allergy Unknown 08/05/16 Yes Vital Signs Vital Signs Date Time Temp Pulse Resp B/P Pulse Ox O2 Delivery O2 Flow Rate FiO2 08/08/16 09:23 86 148/71 08/08/16 09:22 20 08/08/16 07:15 95 Room Air 08/08/16 06:04 98.6 98.6 08/07/16 08:15 2.0 Lab Results Laboratory Tests Test 08/07/16 04:25 08/08/16 10:40 Hemoglobin 11.9g/dL (12.0-15.5) 13.4g/dL (12.0-15.5) Hematocrit 35.7% (36.0-47.0) 38.5% (36.0-47.0) Mean Corpuscular Hemoglobin Concent 34g/dL (31-37) 35g/dL (31-37) Prothrombin Time 13.9SEC (11.7-14.0) Prothromb Time International Ratio 1.1 (0.8-1.1) Laboratory Tests Test 08/08/16 10:40 Hemoglobin 13.4g/dL (12.0-15.5) Hematocrit 38.5% (36.0-47.0) Mean Corpuscular Hemoglobin Concent 35g/dL (31-37) Brief Hospital Course 70 year old female who presented with knee osteoarthritis, for elective total knee arthroplasty. The patient underwent total knee arthroplasty under general anesthesia the day of admission. Perioperative antibiotics and DVT prophylaxis were used. Postoperatively physical therapy and case management were consulted. The patient progressed and is stable for discharge. Discharge Information Condition at Discharge: Stable Follow Up: Weeks (2) Disposition/Orders: D/C to Home Scheduled Amitriptyline Hcl (Amitriptyline Hcl) 1 TAB PO QHS (Reported) Aspirin (Aspirin Ec) 1 TAB PO BID (Reported) Biotin (Biotin) 1 MG PO DAILY (Reported) Clonazepam (Clonazepam) 0.5 MG PO BID (Reported) Ferrous Sulfate (Ferrous Sulfate) 1 TAB PO DAILY (Reported) Fluticasone/Salmeterol (Advair 250-50 Diskus) 1 INH IH BID (Reported) Hydrochlorothiazide (Hydrochlorothiazide Tablet) 6.25 MG PO DAILY (Reported) Lactobacillus Acidophilus (Probiotic) 1 EACH PO DAILY (Reported) Levothyroxine Sodium (Synthroid) 88 MCG PO DAILYAC (Reported) Losartan Potassium (Losartan Potassium) 100 MG PO DAILY (Reported) Metoprolol Succinate (Metoprolol Succinate ( Xl )) 25 MG PO DAILY (Reported) Multivits-Min/Iron/FA/Lutein (Centrum Silver Women Tablet) 1 EACH PO DAILY ( Reported) Omeprazole (Omeprazole) 20 MG PO DAILY (Reported) Oxycodone/Apap 5-325 (Percocet 5-325 Mg Tablet) 1-2 TAB PO Q4-6HRS (Reported) Scheduled PRN Albuterol Sulfate (Proair Hfa Inhaler) 22 PUFF INH PRN Q6HRS PRN PRN SHORTNESS OF BREATH (Reported) Discontinued Medications Glucosamine Hcl (Glucosamine Hcl) 500 MG PO DAILY (Reported) Naproxen (Naprosyn) 375 MG PO BID (Reported) Patient Instructions Patient Instructions Patient Instructions Continue to WBAT with walker. Keep dressing dry and intact. F/U with [facility] in 10-14 days. Call for appointment. Physical therapy for TKA Continue DVT prophylaxis with aspirin 325mg twice daily. JOSUE DE LA PAZ Aug 08, 2016 11:09
[2016-08-08 13:49] VITALS: BP 135/56
== END 2016-08-08 16:00 | disposition home or self-care (01) | DRG 470 ==
LOC: OPSVCIP 05:43 → 4 SOUTHEST 11:19
PROVIDERS: ADMIT Orthopaedic Surgery; ATTEND Orthopaedic Surgery
PROC: 0SRC0J9 Replacement of Right Knee Joint with Synthetic Substitute, Cemented, Open Approach (ICD-10-PCS; principal; 2016-08-05 07:10)
DX: M17.0 Bilateral primary osteoarthritis of knee (principal); J44.9 Chronic obstructive pulmonary disease, unspecified; K21.9 Gastro-esophageal reflux disease without esophagitis; M81.0 Age-related osteoporosis without current pathological fracture
CPT/HCPCS: 36415; 73560; 85014; 85018; 85610; 86850; 86900; 86901; 88305; 88311; 94250; 94640; 94760; C1713; J0171; J0330; J0690; J0780; J1100; J1885; J2405; J2704; J2795; J3010; J3260; J3370; J3490; J7030; J7050; J7120; 97116; 97150; 97530; C1769

== ENCOUNTER → 2016-08-11 | Outpatient (CLI) | payer BC ==
[2016-08-06 15:00] VITALS: BP 134/72
[~2016-08-11] MED LIST changes: +ASPI325T11 PO; -EPINEPHRINE IV PRN; +FERR-26 PO; -KETOROLAC TROMETHAMINE IV PRN; +OXYC-323 PO; -ROPIVACAINE 0.5% IV PRN; -[UNRECOGNIZED DRUG - OTHER] IV PRN
--- NOTE | 2016-08-11 16:18 | RAD ---
Right lower extremity venous ultrasound, 08/11/2016 History: Right leg pain and swelling, recent knee surgery Duplex evaluation including grayscale, color flow and spectral Doppler analysis was performed. The femoral and popliteal veins show no filling defects to suggest DVT. The visualized calf veins are unremarkable. IMPRESSION: There is no sonographic evidence of deep vein thrombosis in the right lower extremity
== END | disposition home or self-care (01) ==
LOC: US 13:47
PROVIDERS: ATTEND Physician Assistant Surgical
DX: M79.89 Other specified soft tissue disorders (principal)
CPT/HCPCS: 93971

== ENCOUNTER → 2018-11-25 | Outpatient (CLI) | payer MEDICARE ==
[~2018-11-25] MED LIST changes: +ALBU2.5V8 INH; +CLON0.5T11 PO; -CLON0.5T3 PO; -FERR-26 PO; +FERR325T14 PO; +GLUC500T10 PO; -GLUC500T7 PO; +LOSA100T14 PO; -LOSA100T6 PO; +METO-239 PO; -METO25TA9 PO; +NAPR-683 PO; -NAPR500T PO; +OMEP20CA10 PO; -OMEP20CA9 PO; -OXYC-323 PO; +OXYC1TAB15 PO; -PROAIR HFA8.5 GM INH
--- NOTE | 2018-11-25 14:09 | RAD ---
KNEE STANDING BILAT AP, KNEE LEFT 2V 11/25/2018 11:19 AM INDICATION: Left knee pain COMPARISON: None available. TECHNIQUE: 4 views of the left knee are provided. Single AP standing comparison view of the right knee is provided. FINDINGS: Right: There is a right total knee arthroplasty. No lucency is identified surrounding the hardware. There is no acute fracture or dislocation. Left knee: There is mild to moderate medial femorotibial joint space narrowing with mild lateral femorotibial joint space narrowing. There is mild patellofemoral joint space narrowing. Corticated fragment is identified along the superior aspect of the patella, possibly from prior fracture. No significant knee joint effusion. IMPRESSION: Mild osteoarthrosis of the knee joint, as described in detail above. No acute fracture or dislocation. Electronically signed by: Akanksha Chavira MD (11/25/2018 2:06 PM) [id number]
== END | disposition home or self-care (01) ==
LOC: RAD 10:27
PROVIDERS: ATTEND Orthopaedic Surgery
DX: M17.12 Unilateral primary osteoarthritis, left knee (principal); M25.862 Other specified joint disorders, left knee; Z96.651 Presence of right artificial knee joint
CPT/HCPCS: 73560; 73565

== ENCOUNTER → 2020-07-02 | Outpatient (CLI) | payer MEDICARE ==
[~2020-07-02] MED LIST changes: +CLON-77 PO; -CLON0.5T11 PO; -LEVO88TA2 PO; +LEVO88TA70 PO; -OMEP20CA10 PO; +OMEP20CA16 PO
[2020-07-02 09:36] LABS: BASO # 0.1 x10^3/uL (0.0-0.2); BASO % 1 % (0-3); EOS # 0.3 x10^3/uL (0.0-0.7); EOS % 4 % (0-3); HEMATOCRIT 42.7 % (36.0-47.0); HEMOGLOBIN 14.4 g/dL (12.0-15.5); LYMPH # 1.8 x10^3/uL (1.0-4.8); LYMPH % 28 % (24-48); MEAN CORPUSCULAR HEMOGLOBIN 33 pg (25-35); MEAN CORPUSCULAR HGB CONC 34 g/dL (31-37); MEAN CORPUSCULAR VOLUME 97 fL (79-100); MONO # 0.5 x10^3/uL (0.0-1.1); MONO % 8 % (0-9); NEUT # 3.6 x10^3/uL (1.8-7.7); NEUT % 58 % (31-73); PLATELET COUNT 225 x10^3/uL (140-400); RED CELL DISTRIBUTION WIDTH 13.3 % (11.5-14.5); WHITE BLOOD COUNT 6.2 x10^3/uL (4.0-11.0)
[2020-07-02 09:39] LABS: ALBUMIN 3.5 g/dL (3.4-5.0); C-REACTIVE PROTEIN 5.8 mg/L (0-3.3); CALCIUM 9.3 mg/dL (8.5-10.1); CREATININE 0.9 mg/dL (0.6-1.0); GFR 60.9
[2020-07-02 10:46] LABS: PROTHROMBIN TIME PATIENT 12.3 SEC (11.7-14.0)
--- NOTE | 2020-07-02 12:47 | EKG ---
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
--- NOTE | 2020-07-02 18:16 | RAD ---
PA and lateral chest. HISTORY: COPD, history of smoking, preop evaluation, left knee arthroplasty PA and lateral views were taken of the chest. Lungs are clear. Heart is normal in size. There is no p leural effusion. IMPRESSION: 1. No acute chest disease. Electronically signed by: Brandin Martinez MD (07/02/2020 6:13 PM) [facility]
[2020-07-03 02:10] LABS: HEMOGLOBIN A1C 5.6 % (4.8-5.6)
== END ==
LOC: SURGPAT 12:45
PROVIDERS: ATTEND Orthopaedic Surgery
DX: Z01.818 Encounter for other preprocedural examination (principal); M17.12 Unilateral primary osteoarthritis, left knee; J44.9 Chronic obstructive pulmonary disease, unspecified; Z87.891 Personal history of nicotine dependence; Z96.652 Presence of left artificial knee joint
CPT/HCPCS: 36415; 71046; 80048; 82040; 82306; 83036; 85025; 85610; 85730; 86140; 87641; 93005

== ENCOUNTER → 2020-07-19 | Outpatient (CLI) | payer MEDICARE ==
[~2020-07-19] MED LIST changes: +AMLO2.5T5 PO; +CALC-104 PO; +ELDE1CAP PO; +FURO20TA3 PO; +GLUC100018 PO; +NAPR-695 PO; +PANT40TA77 PO; +POTA10TA12 PO; +PREVAGEN PO
== END ==
LOC: LAB 10:47
PROVIDERS: ATTEND Orthopaedic Surgery
DX: Z01.812 Encounter for preprocedural laboratory examination (principal); M17.12 Unilateral primary osteoarthritis, left knee; Z20.822 Contact with and (suspected) exposure to COVID-19
CPT/HCPCS: U0003